=== PATIENT | female | born 1950 | race Caucasian/White ===

== ENCOUNTER 2020-05-11 12:19 | Emergency (ER) | payer MEDICARE ==
[2020-05-11] MEDS ORDERED: Enoxaparin 80 MG/0.8 ML Syringe SUBCUT STA (13:05)
[2020-05-11] MEDS ORDERED: Rivaroxaban 15 MG Tab PO STA (13:11)
--- NOTE | 2020-05-11 13:20 | EDM.PDOC ---
ED HPI GENERAL MEDICAL PROBLEM - General Chief Complaint: Lower Extremity Injury/Pain Stated Complaint: DVT RT CALF Time Seen by Provider: 05/11/20 13:05 Source of Information: Reports: Patient, Old Records History Limitations: Reports: No Limitations - History of Present Illness INITIAL COMMENTS - FREE TEXT/NARRATIVE: 69 yo female was referred to the ER from ortho clinic for a DVT in her R calf. No SOB. Does not want to do self injections. Is a smoker. Onset: Sudden Duration: Hour(s):, Constant Location: Reports: Lower Extremity, Right Quality: Reports: Ache Severity: Moderate Improves with: Reports: None Worsens with: Reports: None Context: Reports: Other (See HPI) Associated Symptoms: Reports: No Other Symptoms. 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: Musculoskeletal History: Reports: Fracture Psychiatric History: Reports: Addiction - Past Surgical History Musculoskeletal Surgical History: Reports: ORIF Social & Family History - Tobacco Use Smoking Status *Q: Heavy Tobacco Smoker Years of Tobacco use: 50 Packs/Tins Daily: 1.5 - Caffeine Use Caffeine Use: Reports: Coffee - Alcohol Use Days Per Week of Alcohol Use: 7 Number of Drinks Per Day: 3 Total Drinks Per Week: 21 - Recreational Drug Use Recreational Drug Use: No Review of Systems - Review of Systems Review Of Systems: See Below Constitutional: Reports: No Symptoms Respiratory: Reports: No Symptoms Musculoskeletal: Reports: Other (R calf pain) Skin: Reports: Bruising (RLE) Neurological: Reports: No Symptoms ED EXAM, GENERAL - Physical Exam Exam: See Below Exam Limited By: No Limitations General Appearance: Alert, WD/WN, No Apparent Distress Respiratory/Chest: No Respiratory Distress, Lungs Clear, Normal Breath Sounds, No Accessory Muscle Use Cardiovascular: Regular Rate, Rhythm. No: Tachycardia Extremities: Pedal Edema (RLE with calf tenderness and ecchymosis), Sondra's Sign (Right calf). No: Limited Range of Motion, Redness Neurological: Alert, Oriented, CN II-XII Intact, Normal Cognition, No Motor/Sensory Deficits Psychiatric: Normal Affect, Normal Mood Skin Exam: Warm, Dry, Intact, No Rash, Ecchymosis (R leg) Course - Vital Signs Last Recorded V/S: Last Vital Signs Temp 36.0 C L 05/11/20 12:55 Pulse 83 05/11/20 12:55 Resp 14 05/11/20 12:55 BP 119/63 05/11/20 12:55 Pulse Ox 96 05/11/20 12:55 - Orders/Labs/Meds Meds: Medications Discontinued Medications Generic Name Dose Route Start Last Admin Trade Name Freq PRN Reason Stop Dose Admin Enoxaparin Sodium 70 mg 05/11/20 13:05 Lovenox SUBCUT 05/11/20 13:06 NOW STA Rivaroxaban 15 mg 05/11/20 13:11 Xarelto PO 05/11/20 13:12 NOW STA Departure - Departure Time of Disposition: 13:30 Disposition: Home, Self-Care 01 Condition: Fair Clinical Impression: Deep vein thrombosis (DVT) of calf muscle vein of right lower extremity Qualifiers: Chronicity: acute Qualified Code(s): I82.461 - Acute embolism and thrombosis of right calf muscular vein - Discharge Information *PRESCRIPTION DRUG MONITORING PROGRAM REVIEWED*: No *COPY OF PRESCRIPTION DRUG MONITORING REPORT IN PATIENT JULIA: No Prescriptions: Rivaroxaban [Xarelto] 15 mg PO Q12H #41 tab Instructions: Bleeding Precautions When on Anticoagulant Therapy, Adult Referrals: PCP,None [Primary Care Provider] - Additional Instructions: Take Xarelto as directed. You will need to see your provider 3 weeks from today or sooner to get a different Rx for Xarelto. Return for SOB. Rest with your R l eg elevated above your heart as much as possible. Sepsis Event Note (ED) - Evaluation Sepsis Screening Result: No Definite Risk - Focused Exam Vital Signs: Vital Signs Temp Pulse Resp BP Pulse Ox 05/11/20 12:55 36.0 C L 83 14 119/63 96 05/11/20 12:43 36.0 C L 83 14 119/63 96
== END 2020-05-11 13:32 | disposition home or self-care (01) ==
LOC: JP.ED 12:19
DX: I82.461 Acute embolism and thrombosis of right calf muscular vein (principal); F17.210 Nicotine dependence, cigarettes, uncomplicated; Z88.0 Allergy status to penicillin; Z79.82 Long term (current) use of aspirin; Z79.01 Long term (current) use of anticoagulants
CPT/HCPCS: 99283; A9270